=== PATIENT | female | born 1985 | race Caucasian/White ===

== ENCOUNTER 2019-02-21 08:04 | Emergency (ER) | payer MEDICAID ==
[~2019-02-21] VITALS: Ht 162.6 cm; Wt 75.2 kg
[~2019-02-21 08:04] MED LIST: ONDA4TAB8 PO
[2019-02-21 08:08] VITALS: BP 111/68; PULSE 79; RESP 20; Ht 162.6 cm; Wt 75.2 kg
[2019-02-21] MEDS ORDERED: SOD CHLORIDE 0.9% 1,000 ML IV STA (08:25)
[2019-02-21] MEDS ORDERED: ONDANSETRON 4 MG INJ IV STA (08:25)
== END 2019-02-21 09:34 | disposition home or self-care (01) ==
LOC: FTE 08:04
DX: O21.9 Vomiting of pregnancy, unspecified (principal); R10.2 Pelvic and perineal pain; Z3A.15 15 weeks gestation of pregnancy
CPT/HCPCS: 36415; 76805; 80053; 81001; 82962; 84702; 85025; 86900; 86901; 96361; 96374; J2405; J7030; Z7502